=== PATIENT | male | born 1990 | race Caucasian/White ===

== ENCOUNTER 2022-04-07 11:29 | Emergency (ER) | payer BC, SELFPAY ==
--- NOTE | ~2022-04-07 | XR_ITS ---
EXAMINATION: XR CHEST CLINICAL INFORMATION: Chest pain COMPARISON: None TECHNIQUE: Frontal view of the chest was obtained. FINDINGS: No significant abnormality is noted involving the heart, lungs, mediastinum, bony thorax or soft tissues. XR/XR chest 1V IMPRESSION: Unremarkable chest examination.
--- NOTE | ~2022-04-07 | CT_ITS ---
EXAMINATION: CT ANGIOGRAM CHEST CLINICAL INFORMATION: Chest pain, shortness of breath and family history of clots. COMPARISON: None. TECHNIQUE: Multiple axial images were obtained through the chest after the administration of 65 mL of Omnipaque 300 intravenous contrast. Extensive vascular post-processing including two-dimensional and three-dimensional reformatted images were created and reviewed on an independent workstation. This CT examination was performed using dose optimization techniques as appropriate, variously including the following: *Automated exposure control *Adjustment of mA and/or kV according to patient size (this includes techniques or standardized protocols for targeted exams where dose is matched to indication/reason for exam; i.e. extremities or head) *Use of iterative reconstruction technique DLP: 660 mGy-cm FINDINGS: There is some motion artifact partially limiting the exam. CARDIOVASCULAR: Contrast is present within the pulmonary arteries although suboptimal. No filling defect identified. Aorta normal. Heart unremarkable. No pericardial fluid. LYMPH NODES: Normal. ESOPHAGUS: Normal. AIRWAYS: Normal. LUNGS: Clear. PLEURAL SPACES: Normal. No effusion. THORACIC INLET: Normal. CHEST WALL AND OSSEOUS STRUCTURES: Normal. UPPER ABDOMEN: Normal. CT/CT angio chest aorta IMPRESSION: No evidence for pulmonary embolism. Exam is partially limited because of suboptimal timing of the contrast bolus and motion artifact. Fleischner guidelines were followed.
--- NOTE | ~2022-04-07 | CT_ITS ---
EXAMINATION: CT HEAD WITHOUT CONTRAST CLINICAL INFORMATION: Dizziness. COMPARISON: None TECHNIQUE: Contiguous axial imaging was performed from the skull base to vertex without intravenous administration of contrast. Coronal and sagittal reformatted images were obtained. This CT examination was performed using dose optimization techniques as appropriate, variously including the following: *Automated exposure control *Adjustment of mA and/or kV according to patient size (this includes techniques or standardized protocols for targeted exams where dose is matched to indication/reason for exam; i.e. extremities or head) *Use of iterative reconstruction technique DLP: 873 mGy-cm FINDINGS: The cortical sulci are normal. The lateral ventricles are symmetrical. The third and fourth ventricles are in their normal midline position. The basilar and prepontine cisterns are unremarkable. There is no acute intra or extracerebral abnormality. There is no mass effect or midline shift. Sections through the bony calvarium are unremarkable. The paranasal sinuses are clear. The bony orbits and orbital contents are unremarkable. CT/CT head/brain wo IV con IMPRESSION: No acute intracranial pathology.
--- NOTE | 2022-04-07 11:30 | ECG_ITS ---
Test Reason : chest pain Blood Pressure : / mmHG Vent. Rate : 082 BPM Atrial Rate : 082 BPM P-R Int : 144 ms QRS Dur : 096 ms QT Int : 362 ms P-R-T Axes : 060 029 060 degrees QTc Int : 422 ms Normal sinus rhythm with sinus arrhythmia Incomplete right bundle branch block Borderline ECG No previous ECGs available Referred By: Generic ED Physician Electronically Signed By:CHANTELL IVEY MD
[2022-04-07 11:39] VITALS: BP 127/91; PULSE 82; RESP 16; TEMP 36.7; O2SAT 97; BMI 31.7
[2022-04-07 11:56] LABS: MANUAL DIFF FLAG NO
[2022-04-07 12:07] LABS: Basophils Percent Auto 0.5 % (0-2); Eosinophils Absolute Auto 0.1 X10*3/uL (0.0-0.4); Eosinophils Percent Auto 1.2 % (0-4); Hematocrit 48.9 % (42.0-52.0); Hemoglobin 17.4 g/dl (14.0-18.0); Imm Gran Abs Auto 0.01 X10*3/uL (0.00-0.03); Imm Gran Pct Auto 0.2 % (0.0-0.4); Lymphocytes Absolute Auto 1.8 X10*3/uL (1.2-4.9); Lymphocytes Percent Auto 30.4 % (20-40); Mean Corpuscular HGB Conc 35.6 g/dl (31.0-36.0); Mean Corpuscular Hemoglobin 30.5 pg (27.0-33.0); Mean Corpuscular Volume 85.8 fL (80.0-98.0); Mean Platelet Volume 10.9 fL (9.4-12.4); Monocytes Absolute Auto 0.5 X10*3/uL (0.1-1.2); Monocytes Percent Auto 8.6 % (2-11); Neutrophils Absolute Auto 3.5 x10*3/uL (2.0-8.3); Neutrophils Percent Auto 59.1 % (45-73); Platelet Count 164 X10*3/uL (160-400); Red Cell Distribution Width 12.2 % (11.0-16.0); White Blood Count 5.8 X10*3/uL (4.8-10.8)
[2022-04-07 12:12] LABS: Alanine Aminotransferase 24 U/L (0-40); Alkaline Phosphatase 64 U/L (39-117); Anion Gap 15 (12-20); Aspartate Amino Transferase 30 U/L (5-37); Blood Urea Nitrogen 14 mg/dL (9-16); Calcium 9.7 mg/dL (8.4-10.2); Carbon Dioxide 22 mmol/L (22-29); Chloride 106 mmol/L (96-108); Creatinine Clr Calc Pharmacy 178.6; Estimated Glomerular Filt Rate > 60; Glucose Random 108 mg/dL (60-115); Magnesium 1.8 mg/dL (1.6-2.6); Potassium 4.2 mmol/L (3.3-5.1); Sodium 139 mmol/L (135-145); Total Protein 7.6 g/dL (6.5-8.0)
[2022-04-07 12:18] LABS: Troponin-I High Sensitivity < 3.5 ng/L (<3.5-35.0)
[2022-04-07 12:23] LABS: D Dimer High Sensitivity < 150 NG/ML
--- NOTE | 2022-04-07 13:45 | ED_ITS ---
HPI - Chest Pain General Chief Complaint: Chest Pain Stated Complaint: Chest Pain L Arm Numbness Time Seen by Provider: 04/07/22 13:27 Source: patient Mode of arrival: ambulatory Limitations: no limitations History of Present Illness HPI narrative: This is a 32-year-old no significant medical history presents to the emergency department complaints of intermittent dizziness, left-sided chest pain with radiation into the left arm and associated shortness of breath that started this morning while at work. Patient tells me he has never had anything like this before, he tells me when this occurred he felt short of breath, confused, diaphoretic and did not feel well at all. He tells me because of that he deci ded to come down to the emergency department and be evaluated. He tells me at this time he is feeling better however he is currently having some intermittent numbness and tingling to the left arm. He reports at this moment he is feeling better than he was when the symptoms 1st arise to about 2-3 hours ago. Patient denies any personal cardiac history. However he tells me there is a strong family history of blood clots, and MIs. Even at young ages. No history of sudden cardiac at a young age. Patient denies nausea, vomiting, fevers, chills, headache, dizziness, weakness, recent sick contacts. Related Data Allergies Allergy/AdvReac Type Severity Reaction Status Date / Time No Known Allergies Allergy Verified 04/07/22 11:41 Review of Systems Review of Systems: Constitutional : No Weight loss, No Fever, No Chills, No Fatigue, No Malaise ENT/Mouth : No sore throat, No Rhinorrhea Eyes: No Eye Pain, No Swelling, No Redness Cardiovascular : + Chest Pain, + SOB, No Dyspnea on Exertion, No Orthopnea, No Edema, No Palpitations Respiratory : No Cough, No Sputum, No Wheezing Gastrointestinal : No Nausea, No Vomiting, No Diarrhea, No Constipation, No abdominal Pain, No Hematochezia, No Melena Genitourinary : No Dysuria, No Urinary Frequency, No Hematuria, Musculoskeletal : No joint pain, No Myalgias, No Joint Swelling Skin : No Skin Lesions, No rash Neuro : No Weakness, No Numbness, No Dizziness, No Headache All other systems reviewed and are negative Yes all other systems are reviewed and are negative [facility] Past Medical History Attestation statement: The following information was validated with the patient. Source: old records reviewed and nursing notes reviewed Social History Social History Advance Directives: No Advance Directives Information Provided: No Physical Exam Vital Signs: Vital Signs: Last Vital Signs Temp 97.9 F 04/07/22 19:48 Pulse 76 04/07/22 19:48 Resp 17 04/07/22 19:48 BP 133/92 H 04/07/22 19:48 Pulse Ox 98 04/07/22 19:48 O2 Del Method 04/07/22 19:48 BMI result Body Mass Index 31.7 vss Appearance: Alert.? Oriented X3.? No acute distress.? Head: Normocephalic, atraumatic, no step-offs or deformities Eyes: Pupils equal, round and reactive to light.? ENT: Pharynx normal.? Neck: Normal inspection.? Neck supple.? CVS: Normal heart rate and rhythm.? Pulses normal.? Respiratory: No respiratory distress.? Breath sounds normal.? Abdomen: Soft and nontender.? Skin: Skin warm and dry.? Normal skin color.? Normal skin turgor.? Extremities: No lower extremity edema.? No calf ttp, negative denny. 5/5 strength to bilateral upper and lower extremities Neuro: Oriented X 3.? No motor deficit.? No sensory deficit. CN 2-12 intact . Normal rqruxe-so-oakd, cpks-fa-blqa, steady tandem gait with normal coordination. Course Reevaluation(s) Reevaluation #1: CBC appears to be within normal limits. Chemistry with no acute findings, troponin negative, EKG nonischemic, unlikely ACS however will obtain a 2nd troponin. D-dimer negative however still suspicion for PE due to patient history, family history and presentation, will obtain CT of the chest to rule out. Chest x-ray unremarkable. Pending CTA of the chest and CT of the head due to patient's dizziness. Time: 13:54 Reevaluation #2: I was called to the bedside to help with an IV on this patient however when I went to go start the IV I noted patient was diaphoretic, and pain and felt like he was going to pass out. I proceeded with IV guidance for ultrasound, patient syncopized right when I started the IV however he was complaining of symptoms prior to needle being taken out prior to me starting the IV. Patient syncopized woke up, and then minutes later he had a 2nd syncopal episode again diaphoretic, pale, complaining of chest pain. I went and got my attending immediately who placed a 20 gauge IV in the right AC, patient was rushed to CT to obtain a CTA of the chest a ordered to rule out dissection, due to change of presentation. ? Vasovagal syncope secondary to needles however. Dr. Guzman guiding me with this case. Tells me no need for CTA PE protocol ramakrishna that this is PE she state, she would like a disection study on this patient Time: 14:51 Reevaluation #3: CT of the head with no acute intracranial pathology. Chest CTA with no signs of PE, no dissection. Chest xray with no acute findings. Patient appears much better at this time. Time: 17:13 Additional Reevaluation(s): [address] Pulliam who doesnt feel as though this requires hospital admission due to negative work up. Suggested obtaining orthostatics and SCOTT. 1926 Orthostatics pending. SCOTT pending. Patient aware that we are waiting on these things. Appears well VSS 2057 patient was evaluated by my attending who feels comfortable with patient being dc home. patient reports resolution of symptoms at this time. Feeling well and excited to go home. vital signs stable. MDM - Chest Pain MDM Narrative Medical decision making narrative: 2006 32-year-old male presents with sudden-onse chest pain with radiation to left arm, shortness of breath, dizziness, intermittent left arm paresthesias. Patient reports the symptoms started 2-3 hours ago. They have improved slightly. Reports all intermittent in nature. physical examination benign. Will rule out ACS, PE. I do not suspect endocarditis or myocarditis on this patient. Other differentials including anxiety or noncardiac related chest pain. No signs of stroke or posterior stroke on this patient, NIH stroke scale negative. Normal cerebellar function. Plan at this time is to obtain basic labs, EKG, troponin, D-dimer, imaging. Medical Records Data Attestation: I reviewed the patient's medical records. Lab Data Attestation: I reviewed the patient's lab results. Result diagrams: 04/07/22 11:51 04/07/22 11:51 Labs: Lab Results 04/07/22 04/07/22 04/07/22 Range/Units 11:51 11:51 11:51 WBC 5.8 (4.8-10.8) X10*3/uL RBC 5.70 (4.60-5.80) X10*6/uL Hgb 17.4 (14.0-18.0) g/dl Hct 48.9 (42.0-52.0) % MCV 85.8 (80.0-98.0) fL MCH 30.5 (27.0-33.0) pg MCHC 35.6 (31.0-36.0) g/dl RDW 12.2 (11.0-16.0) % Plt Count 164 (160-400) X10*3/uL MPV 10.9 (9.4-12.4) fL Immature Gran % (Auto) 0.2 (0.0-0.4) % Neut % (Auto) 59.1 (45-73) % Lymph % (Auto) 30.4 (20-40) % Morris % (Auto) 8.6 (2-11) % Eos % (Auto) 1.2 (0-4) % Baso % (Auto) 0.5 (0-2) % Lymph # (Auto) 1.8 (1.2-4.9) X10*3/uL Morris # (Auto) 0.5 (0.1-1.2) X10*3/uL Eos # (Auto) 0.1 (0.0-0.4) X10*3/uL Baso # (Auto) 0.0 (0.0-0.2) X10*3/uL Abs Immat Gran (auto) 0.01 (0.00-0.03) X10*3/uL Absolute Neuts (auto) 3.5 (2.0-8.3) x10*3/uL Absolute Nucleated RBC 0.000 (0.0-0.012) X10*3/uL Nucleated RBC % (auto) 0.0 (0.0-0.2) /100WBC D-Dimer High Sensitivty < 150 NG/ML Sodium 139 (135-145) mmol/L Potassium 4.2 (3.3-5.1) mmol/L Chloride 106 (96-108) mmol/L Carbon Dioxide 22 (22-29) mmol/L Anion Gap 15 (12-20) BUN 14 (9-16) mg/dL Creatinine 0.69 (0.5-1.4) mg/dL Estim Creat Clear Calc 178.6 Estimated GFR > 60 Random Glucose 108 (60-115) mg/dL Calcium 9.7 (8.4-10.2) mg/dL Magnesium 1.8 (1.6-2.6) mg/dL Total Bilirubin 1.0 (0.0-1.0) mg/dL AST 30 (5-37) U/L ALT 24 (0-40) U/L Alkaline Phosphatase 64 (39-117) U/L Troponin I High Sens (<3.5-35.0) ng/L Total Protein 7.6 (6.5-8.0) g/dL Albumin 5.0 (3.5-5.0) g/dL 04/07/22 04/07/22 Range/Units 11:51 16:06 WBC (4.8-10.8) X10*3/uL RBC (4.60-5.80) X10*6/uL Hgb (14.0-18.0) g/dl Hct (42.0-52.0) % MCV (80.0-98.0) fL MCH (27.0-33.0) pg MCHC (31.0-36.0) g/dl RDW (11.0-16.0) % Plt Count (160-400) X10*3/uL MPV (9.4-12.4) fL Immature Gran % (Auto) (0.0-0.4) % Neut % (Auto) (45-73) % Lymph % (Auto) (20-40) % Morris % (Auto) (2-11) % Eos % (Auto) (0-4) % Baso % (Auto) (0-2) % Lymph # (Auto) (1.2-4.9) X10*3/uL Morris # (Auto) (0.1-1.2) X10*3/uL Eos # (Auto) (0.0-0.4) X10*3/uL Baso # (Auto) (0.0-0.2) X10*3/uL Abs Immat Gran (auto) (0.00-0.03) X10*3/uL Absolute Neuts (auto) (2.0-8.3) x10*3/uL Absolute Nucleated RBC (0.0-0.012) X10*3/uL Nucleated RBC % (auto) (0.0-0.2) /100WBC D-Dimer High Sensitivty NG/ML Sodium (135-145) mmol/L Potassium (3.3-5.1) mmol/L Chloride (96-108) mmol/L Carbon Dioxide (22-29) mmol/L Anion Gap (12-20) BUN (9-16) mg/dL Creatinine (0.5-1.4) mg/dL Estim Creat Clear Calc Estimated GFR Random Glucose (60-115) mg/dL Calcium (8.4-10.2) mg/dL Magnesium (1.6-2.6) mg/dL Total Bilirubin (0.0-1.0) mg/dL AST (5-37) U/L ALT (0-40) U/L Alkaline Phosphatase (39-117) U/L Troponin I High Sens < 3.5 < 3.5 (<3.5-35.0) ng/L Total Protein (6.5-8.0) g/dL Albumin (3.5-5.0) g/dL ECG Data ECG #1: Attestation: I personally reviewed and interpreted this ECG as follows: ECG interpretation date: 04/07/22 ECG interpretation time: 13:53 Prior ECG tracings: not available for review Interpretation: Ventricular rate of 82, VA normal, QRS normal, QT/ QTC normal. EKG with normal sinus rhythm with sinus arrhythmia, incomplete right bundle branch block. No ST elevations or inversions concerning for ischemia. No previous to compare with. Critical Care Time Critical Care Time Critical Care Time: Yes Total Critical Care Time: 45 Attestation: I attest to this time spent taking care of the patient, obtaining history, physical, reviewing labs, imaging, speaking to my attending, speaking to specialist. Discharge Plan Discharge Clinical Impression: Chest pain, Shortness of breath, Syncope Patient Disposition: Home, Self-Care Instructions: Chest Pain (ED), Syncope (ED), Syncope in Older Adults (ED), Shortness of Breath (ED) Additional Instructions: Take your medications as prescribed. If you were prescribed antibiotics today, it is important that you take your medication to their entirety, do not skip any doses, do not finish them early. Follow-up with your primary care provider this week. Follow up with cardiology this week Return to the emergency department with new or worsening symptoms. Such as fevers, chills, chest pain, shortness of breath, nausea, vomiting, dizziness, headache, vision changes, lethargy In case of emergency call 911 CT/CT head/brain wo IV con IMPRESSION: No acute intracranial pathology. ? ?CT/CT angio chest aorta IMPRESSION: No evidence for pulmonary embolism. ? Exam is partially limited because of suboptimal timing of the contrast bolus and motion artifact. ? Fleischner guidelines were followed. XR/XR chest 1V IMPRESSION: Unremarkable chest examination. Referrals: Herson Hinson MD [Physician] - 1 week Physician,Mario J [Primary Care Provider] - 2 days Stand Alone Forms: Work/School Release Interventions: ED Discharge Assessment Last Done: 04/07/22 21:13 Discharge Date/Time: 04/07/22 21:13
--- NOTE | 2022-04-07 14:46 | PC.NURSE ---
2 attempts made at peripheral IV- Provider needed for US guidance- chase was unable to place line and pt passed out x2 during procedure. pt became very pale and diphoretic, stated to authro my vision is going . Sergio Guzman called to bedside, vitals taken 122/73 75bpm, pt placed on quality assurance monitor body, bolus of 0.9%NS given- pt take to CT STAT.
[2022-04-07] MEDS: iohexoL 350 MG/ML 100 ML INFUS..BTL IV (14:56)
[2022-04-07 14:57] VITALS: BP 123/69; PULSE 75; RESP 12; TEMP 36.6; O2SAT 100
--- NOTE | 2022-04-07 15:03 | ECG_ITS ---
Test Reason : chest pain Blood Pressure : / mmHG Vent. Rate : 068 BPM Atrial Rate : 068 BPM P-R Int : 162 ms QRS Dur : 106 ms QT Int : 400 ms P-R-T Axes : 037 020 047 degrees QTc Int : 425 ms Normal sinus rhythm with sinus arrhythmia Incomplete right bundle branch block Borderline ECG When compared with ECG of 07-APR-2022 11:32, No significant change was found Referred By: Manisha Garcia Electronically Signed By:CHANTELL IVEY MD
--- NOTE | 2022-04-07 15:15 | PC.NURSE ---
Pt moved to main emergency department from CT scan. Speaking full clear sentences, alert and oriented. IV in right ac. Changed over and placed on legal office administrator NSR at 75.
[2022-04-07 16:31] LABS: Troponin-I High Sensitivity < 3.5 ng/L (<3.5-35.0)
[2022-04-07] MEDS: Morphine Sulfate 4 MG/ML CARTRIDGE IVPUSH (18:29)
[2022-04-07] MEDS: 0.9 % Sodium Chloride 1,000 ML 999 ML IV (18:29)
--- NOTE | 2022-04-07 18:39 | PC.NURSE ---
Pt alert and oriented, respirations even and unlabored. Stating his chest pain feels much better. Third liter of fluid running
[2022-04-07 19:43] VITALS: BP 111/78; PULSE 71
[2022-04-07 19:44] VITALS: BP 118/82; PULSE 70
[2022-04-07 19:46] VITALS: BP 127/84; PULSE 83
[2022-04-07 19:48] VITALS: BP 133/92; PULSE 76; RESP 17; TEMP 36.6; O2SAT 98
== END 2022-04-07 21:13 | disposition home or self-care (01) ==
PROVIDERS: Physician Assistant; Emergency Provider Emergency Medicine
DX: R07.89 Other chest pain (principal); R55 Syncope and collapse; R42 Dizziness and giddiness; R20.0 Anesthesia of skin; R06.02 Shortness of breath; Z79.899 Other long term (current) drug therapy
CPT/HCPCS: 36415; 70450; 71045; 71275; 80053; 83735; 84484; 85025; 85379; 93005; 96361; 96374; 99284; J2270; Q9967